=== PATIENT | male | born 1985 | race Caucasian/White ===

== ENCOUNTER 2016-09-24 17:31 | Emergency (ER) | payer BC, MEDICAID ==
[~2016-09-24] VITALS: Ht 188 cm; Wt 81.6 kg
[~2016-09-24 17:31] MED LIST: ALPR1TAB7 PO; DOXY150T PO; FLUT1BLS IH; GABA800T2 PO
[2016-09-24] MEDS ORDERED: CLON0.2T PO (17:48)
[2016-09-24] MEDS ORDERED: QUET100T PO (17:49)
--- NOTE | 2016-09-24 18:09 | NUR ---
pt was evaluated by dr Rivas. pt was d/c to home. d/c instructions given to the pt.
[2016-09-24 18:10] VITALS: BP 129/76
== END 2016-09-24 18:11 | disposition home or self-care (01) ==
LOC: ER 17:31
DX: L03.115 Cellulitis of right lower limb (principal); F11.10 Opioid abuse, uncomplicated; Z59.0 Homelessness
CPT/HCPCS: A4663